=== PATIENT | male | born 1985 | race Hispanic/Latino ===

== ENCOUNTER 2018-07-25 20:13 | Emergency (ER) | payer SELFPAY ==
--- NOTE | 2018-07-25 20:40 | EDPHYS ---
Physician Documentation [facility] Name: Bryson Bello Age: 33 yrs Sex: Male : 1985 Arrival Date: 07/25/2018 Time: 20:17 Bed 25 Private MD: None, None ED Physician Mago Villalta HPI: 07/25 20:37 This 33 yrs old Male presents to ER via Ambulatory with complaints of High ma2 Blood Pressure. 20:37 The patient has elevated blood pressure and discovered this at [facility]. Onset: The ma2 symptoms/episode began/occurred gradually, 1 day(s) ago. Associated signs and symptoms: Pertinent negatives: chest pain, dizziness, dyspnea, headache, lightheadedness, nausea, visual changes, vomiting, weakness. Severity of symptoms: At its worst the blood pressure was mild, in the emergency department the blood pressure is improved. The patient has not experienced similar symptoms in the past. healthy. here with asymptomatic HTN 123/100. Historical: - Allergies: 20:36 No Known Allergies; tl3 - Home Meds: 20:36 None [Active]; tl3 - PMHx: 20:36 None; tl3 - Immunization history:: Adult Immunizations up to date. - Social history:: Smoking status: Patient/guardian denies using tobacco, never smoked, Patient/guardian denies using alcohol, street drugs, The patient lives with family. - Ebola Screening: : No symptoms or risks identified at this time. - Family history:: not pertinent, pertinent for. - Hospitalizations: : No recent hospitalization is reported. ROS: 20:37 Constitutional: Negative for fever, chills, and weight loss, Neck: Negative for injury, ma2 pain, and swelling. 20:37 All other systems are negative. Exam: 20:37 Constitutional: This is a well developed, well nourished patient who is awake, alert, ma2 and in no acute distress. Chest/axilla: Normal chest wall appearance and motion. Nontender with no deformity. No lesions are appreciated. Cardiovascular: Regular rate and rhythm with a normal S1 and S2. No gallops, murmurs, or rubs. Normal PMI, no JVD. No pulse deficits. Respiratory: Lungs have equal breath sounds bilaterally, clear to auscultation and percussion. No rales, rhonchi or wheezes noted. No increased work of breathing, no retractions or nasal flaring. Abdomen/GI: Soft, non-tender, with normal bowel sounds. No distension or tympany. No guarding or rebound. No evidence of tenderness throughout. MS/ Extremity: Pulses equal, no cyanosis. Neurovascular intact. Full, normal range of motion. Neuro: Awake and alert, GCS 15, oriented to person, place, time, and situation. Cranial nerves II-XII grossly intact. Motor strength 5/5 in all extremities. Sensory grossly intact. Cerebellar exam normal. Normal gait. Vital Signs: 20:36 BP 129 / 96; Pulse 81; Resp 18; Temp 98.7(O); Pulse Ox 100% ; tl3 MDM: 20:25 Patient medically screened. ma2 20:37 Differential diagnosis: asymptomatic htn. Data reviewed: vital signs, nurses notes, EMS ma2 record. Counseling: I had a detailed discussion with the patient and/or guardian regarding: the historical points, exam findings, and any diagnostic results supporting the discharge/admit diagnosis, the presence of at least one elevated blood pressure reading (>120/80) during this emergency department visit, the need for outpatient follow up. Administered Medications: No medications were administered Disposition: 07/25/18 20:40 Discharged to Home. Impression: Elevated blood-pressure reading, without diagnosis of hypertension. - Condition is Stable. - Discharge Instructions: Hypertension, [id number], DASH Eating Plan, Managing Your Hypertension. - Medication Reconciliation Form, Thank You Letter, Antibiotic Education, Prescription Opioid Use form. - Follow up: Private Physician; When: Tomorrow; Reason: Continuance of care. Signatures: Mago Villalta MD MD ma2 Maritza Reyes RN RN tl3 Corrections: (The following items were deleted from the chart) 20:48 20:40 07/25/2018 20:40 Discharged to Home. Impression: Elevated blood-pressure reading, tl3 without diagnosis of hypertension. Condition is Stable. Forms are Medication Reconciliation Form, Thank You Letter, Antibiotic Education, Prescription Opioid Use. Follow up: Private Physician; When: Tomorrow; Reason: Continuance of care. ma2
--- NOTE | 2018-07-25 20:40 | ER ---
Nurse's Notes [facility] Name: Bryson Bello Age: 33 yrs Sex: Male : 1985 Arrival Date: 07/25/2018 Time: 20:17 Bed 25 Private MD: None, None Diagnosis: Elevated blood-pressure reading, without diagnosis of hypertension Presentation: 07/25 20:34 Presenting complaint: Patient states: two high [place] two different machines about an hour apart. Transition of care: patient was not received from another setting of care. Onset of symptoms was July 25, 2018 at 20:35. Risk Assessment: Do you want to hurt yourself or someone else? Patient reports no desire to harm self or others. Initial Sepsis Screen: Does the patient meet any 2 criteria? No. Patient's initial sepsis screen is negative. Does the patient have a suspected source of infection? No. Patient's initial sepsis screen is negative. Care prior to arrival: None. 20:34 Method Of Arrival: Ambulatory tl3 20:34 Acuity: MEME 5 tl3 Triage Assessment: 20:36 General: Appears in no apparent distress. comfortable, slender, well groomed, well tl3 developed, well nourished, Behavior is calm, cooperative, appropriate for age. Pain: Denies pain. EENT: No deficits noted. No signs and/or symptoms were reported regarding the EENT system. Neuro: No deficits noted. Level of Consciousness is awake, alert, obeys commands, Oriented to person, place, time, situation, Appropriate for age. Cardiovascular: No deficits noted. Patient's skin is warm and dry. Respiratory: Airway is patent Respiratory effort is even, unlabored, Respiratory pattern is regular, symmetrical. GI: No deficits noted. No signs and/or symptoms were reported involving the gastrointestinal system. : No deficits noted. No signs and/or symptoms were reported regarding the genitourinary system. Derm: No deficits noted. No signs and/or symptoms reported regarding the dermatologic system. Musculoskeletal: No deficits noted. No signs and/or symptoms reported regarding the musculoskeletal system. Historical: - Allergies: 20:36 No Known Allergies; tl3 - Home Meds: 20:36 None [Active]; tl3 - PMHx: 20:36 None; tl3 - Immunization history:: Adult Immunizations up to date. - Social history:: Smoking status: Patient/guardian denies using tobacco, never smoked, Patient/guardian denies using alcohol, street drugs, The patient lives with family. - Ebola Screening: : No symptoms or risks identified at this time. - Family history:: not pertinent, pertinent for. - Hospitalizations: : No recent hospitalization is reported. Screenin:38 Abuse screen: Denies threats or abuse. Nutritional screening: No deficits noted. tl3 Tuberculosis screening: No symptoms or risk factors identified. Fall Risk None identified. Assessment: 20:38 Reassessment: No changes from previously documented assessment. tl3 Vital Signs: 20:36 BP 129 / 96; Pulse 81; Resp 18; Temp 98.7(O); Pulse Ox 100% ; tl3 ED Course: 20:17 Patient arrived in ED. dl4 20:18 None, None is Private Physician. dl4 20:25 Maritza Reyes, RN is Primary Nurse. tl3 20:25 Mago Villalta MD is Attending Physician. ma2 20:36 Triage completed. tl3 20:36 Arm band placed on right wrist. tl3 20:38 ED physician to see patient. Dr Villalta at bedside for asessment. tl3 20:38 Patient has correct armband on for positive identification. Bed in low position. Call tl3 light in reach. Side rails up X 1. Pulse ox on. NIBP on. 20:38 No provider procedures requiring assistance completed. Patient did not have IV access tl3 during this emergency room visit. Administered Medications: No medications were administered Outcome: 20:40 Discharge ordered by . ma2 20:47 Discharged to home ambulatory. tl3 20:47 Condition: good 20:47 Discharge instructions given to patient, Instructed on discharge instructions, follow up and referral plans. monitoring blood pressure, following up with PCP 20:48 Patient left the ED. tl3 Signatures: Mago Villalta MD MD ma2 Maritza Reyes, RN RN 3 Oliver George dl4
== END 2018-07-25 20:48 | disposition home or self-care (01) ==
LOC: ER 20:13
DX: R03.0 Elevated blood-pressure reading, without diagnosis of hypertension (principal)
CPT/HCPCS: 99283